=== PATIENT | female | born 2000 | race Caucasian/White ===

== ENCOUNTER 2020-07-01 02:12 | Emergency (ER) | payer MEDICAID, OTHER ==
[~2020-07-01] VITALS: Ht 160 cm; Wt 93.4 kg
[2020-07-01 02:17] VITALS: BP 140/78
--- NOTE | 2020-07-01 02:22 | NUR ---
PT AMBULATED TO BED #1
--- NOTE | 2020-07-01 02:45 | NUR ---
20Y/O FEMALE PRESENTED TO ED C/O ABD PAIN AND DIARRHEA X 2 HRS . PT DENIES BLOOD IN STOOL. PT STATES ABD PAIN "FELT SIMILAR TO CONTRACTIONS WHEN SHE GAVE THE FIRST TIME." PT RATES SUPRAPUBIC PAIN 8/ BUT STATES SHE IS NOT CURRENTLY HAVING THE PAIN AT THIS TIME. PT STATES THE PAIN MADE HER ANIXOUS AND THATS WHY SHE CAME TO ER. PT DENIES FEVER , CHILLS . PT STATES SHE DOES HAVE NAUSEA , NOT AT THIS TIME AND HAS BEEN NORMAL DURING HER . PT DENIES VAGINAL BLEEDING. ABD ROUND, SOFT AND NONTENDER UPON PALPATION. NORMOACTIVE BOWEL SOUNDS. PMH: NONE NKA
--- NOTE | 2020-07-01 02:48 | NUR ---
DR. YODER AT BEDSIDE FOR MEDICAL EVALUATION.
--- NOTE | 2020-07-01 02:57 | NUR ---
PER L&D RN , HR [address] DR[address] YODER MADE AWARE.
[2020-07-01 03:03] LABS: APPEARANCE,URINE CLOUDY (CLEAR); BILIRUBIN,URINE NEGATIVE (NEGATIVE); BLOOD, URINE 1+ (NEGATIVE); COLOR,URINE YELLOW (YELLOW); LEUKOCYTE ESTERASE ,URINE TRACE (NEGATIVE); NITRITE, URINE NEGATIVE (NEGATIVE); UGLUCOSE NEGATIVE (NEGATIVE)
[2020-07-01 03:35] VITALS: BP 140/78
== END 2020-07-01 03:35 | disposition home or self-care (01) ==
LOC: MED 02:12
DX: O23.41 Unspecified infection of urinary tract in pregnancy, first trimester (principal); O26.891 Other specified pregnancy related conditions, first trimester; R19.7 Diarrhea, unspecified; Z3A.14 14 weeks gestation of pregnancy
CPT/HCPCS: 81001; 87086; 99283